=== PATIENT | female | born 1995 | race Caucasian/White ===

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

== ENCOUNTER 2018-07-15 15:19 | Emergency (ER) | payer MEDICAID ==
[2018-07-15 15:36] VITALS: BP 143/69
--- NOTE | 2018-07-15 16:49 | EDM.PDOC ---
ED HPI GENERAL MEDICAL PROBLEM - General Chief Complaint: Genitourinary Problem Stated Complaint: RIGHT LOWER BACK/FLANK PAIN Time Seen by Provider: 07/15/18 15:50 Source of Information: Reports: Patient History Limitations: Reports: No Limitations - History of Present Illness INITIAL COMMENTS - FREE TEXT/NARRATIVE: 23-year-old female complaining of back pain especially on the right side for the past week. She's been seen at the clinic and started on antibiotics for a urinary tract infection. It's not getting better. No fevers or chills, no dysuria. Onset: Gradual Duration: Day(s): (7 days) Associated Symptoms: Denies: Fever/Chills, Loss of Appetite, Malaise, Nausea/ Vomiting, Shortness of Breath - Related Data Allergies Allergy/AdvReac Type Severity Reaction Status Date / Time latex Allergy Rash Uncoded 07/15/18 15:40 Home Meds: Home Meds Albuterol [Proair HFA] 2 inhalation INH BID PRN 01/25/14 [History] Albuterol Sulfate 1 inh INH ASDIRECTED 10/25/15 [History] Pnv with Ca,No.72/Iron/Fa [Pnv Plus Multivit Tab] 1 cap PO DAILY [History] metroNIDAZOLE [Metronidazole] 1 tab PO BID 07/15/18 [History] Past Medical History Respiratory History: Reports: Asthma Genitourinary History: Reports: Renal Calculus, UTI, Recurrent 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 collarbomne fx Neurological History: Reports: Migraines Psychiatric History: Reports: Anxiety, Depression, Panic Attack Dermatologic History: Reports: Eczema - Past Surgical History HEENT Surgical History: Reports: Myringotomy w Tube(s), Tonsillectomy Social & Family History - Tobacco Use Smoking Status *Q: Light Tobacco Smoker Years of Tobacco use: 4 Packs/Tins Daily: 0.1 - Caffeine Use Caffeine Use: Reports: Soda ED ROS GENERAL - Review of Systems Review Of Systems: See Below Constitutional: Denies: Fever, Chills HEENT: Reports: No Symptoms Respiratory: Denies: Shortness of Breath GI/Abdominal: Denies: Nausea, Vomiting : Reports: No Symptoms Musculoskeletal: Reports: Back Pain Skin: Reports: No Symptoms ED EXAM, GENERAL - Physical Exam Exam: See Below Exam Limited By: No Limitations General Appearance: Alert, No Apparent Distress (Patient appears uncomfortable but not distressed) Eye Exam: Bilateral Eye: Normal Inspection Respiratory/Chest: No Respiratory Distress, Lungs Clear Cardiovascular: Regular Rate, Rhythm GI/Abdominal: Soft, Non-Tender Back Exam: CVA Tenderness (R), CVA Tenderness (L), Paraspinal Tenderness (Even light palpation to the lower thoracic and upper lumbar areas causes significant discomfort) Neurological: Alert, Oriented, No Motor/Sensory Deficits Psychiatric: Anxious Skin Exam: Warm, Dry Course - Vital Signs Last Recorded V/S: Last Vital Signs Temp 97.4 F 07/15/18 15:48 Pulse 68 07/15/18 15:48 Resp 16 07/15/18 15:48 BP 143/69 H 07/15/18 15:48 Pulse Ox 97 07/15/18 15:48 - Orders/Labs/Meds Labs: Laboratory Tests 07/15/18 07/15/18 Range/Units 16:52 16:52 Urine Color Yellow Urine Appearance Clear Urine pH 6.0 (4.5-8.0) Ur Specific [place] 1.020 (1.008-1.030) Urine Protein Negative (NEGATIVE) mg/dL Urine Glucose (UA) Normal (NEGATIVE) mg/dL Urine Ketones Negative (NEGATIVE) mg/dL Urine Occult Blood Large (NEGATIVE) Urine Nitrite Negative (NEGATIVE) Urine Bilirubin Negative (NEGATIVE) Urine Urobilinogen Normal (NORMAL) mg/dL Ur Leukocyte Esterase Small (NEGATIVE) Urine RBC 50-75 H (0-5) Urine WBC 5-10 H (0-5) Ur Epithelial Cells Moderate Amorphous Sediment Not seen Urine Bacteria Moderate Urine Mucus Not seen Urine HCG, Qual Negative Meds: Medications Discontinued Medications Generic Name Dose Route Start Last Admin Trade Name Freq PRN Reason Stop Dose Admin Ketorolac Tromethamine 60 mg 07/15/18 17:12 07/15/18 17:17 Toradol IM 07/15/18 17:13 60 mg ONETIME ONE Administration - Re-Assessments/Exams Free Text/Narrative Re-Assessment/Exam: 07/15/18 18:37 A UA was obtained by miniature catheterization, test was negative and there was some RBCs present. A CT the abdomen and pelvis followed and was normal. Prior to the CT the patient was given 60 mg of IM Toradol and she did look much more comfortable. She'll be discharged with 10 additional doses to take 3 times a day and continue on the antibiotic. Departure - Departure Time of Disposition: 18:49 Disposition: Home, Self-Care 01 Condition: Good Clinical Impression: Back pain Qualifiers: Back pain location: low back pain Chronicity: acute Back pain laterality: bilateral Sciatica presence: without sciatica Qualified Code(s): M54.5 - Low back pain - Discharge Information Instructions: Acute Back Pain, Adult Referrals: PCP,None [Primary Care Provider] - Forms: ED Department Discharge Care Plan Goals: Take one dose of ketorolac every 6 hours until gone, continuing her antibiotic and increase activity as tolerated. Consider rechecking in 2-3 days if not improving satisfactorily, or return sooner if worsening such as fever or vomiting.
[2018-07-15] MEDS ORDERED: Ketorolac 60 MG/2 ML SDV IM ONE (17:12)
--- NOTE | 2018-07-15 18:26 | CRLCT ---
INDICATION: Right flank pain TECHNIQUE: CT abdomen and pelvis without contrast. COMPARISON: 12/15/2015. FINDINGS: Lower chest: A 4 mm left lower lobe nodule again seen on image 12. Liver: Unremarkable. Spleen: Unremarkable. Pancreas: Unremarkable. Gallbladder and bile ducts: Unremarkable. Adrenal glands: Unremarkable. Kidneys: No hydronephrosis or discrete, measurable urolithiasis. GI tract: Irregular curvilinear ingested densities in the stomach. No mechanical bowel obstruction. A normal appendix. No significant pericolonic changes. Stool throughout the colon. Vascular structures: Unremarkable. Lymph nodes: Unremarkable. Miscellaneous: Small free fluid in the cul-de-sac. No free air. Pelvic Organs: No gross uterine or bladder abnormality seen. An ill-defined low-attenuation area in the right adnexa could be related to a dominant follicle. A tampon in the vagina. Bones: Unremarkable for age. IMPRESSION: No obstructive uropathy or discrete urolithiasis. No evidence of an acute process in the abdomen or pelvis. Small pelvic free fluid could be physiologic. Dictated by Marty Lam MD @ 07/15/2018 6:24:48 PM Please note that all CT scans at this facility use dose modulation, iterative reconstruction, and/or weight-based dosing when appropriate to reduce radiation dose to as low as reasonably achievable. Dictated by: Marty Lam MD @ 07/15/2018 18:24:53 (Electronically Signed)
== END 2018-07-15 18:49 | disposition home or self-care (01) ==
LOC: JP.ED 15:19
DX: M54.5 Low back pain (principal); F17.210 Nicotine dependence, cigarettes, uncomplicated; F41.9 Anxiety disorder, unspecified; F32.9 Major depressive disorder, single episode, unspecified; Z91.040 Latex allergy status; Z79.899 Other long term (current) drug therapy
CPT/HCPCS: 74176; 81001; 81025; 96372; 99284; J1885